=== PATIENT | female | born 1970 | race Caucasian/White ===

== ENCOUNTER 2018-05-17 15:55 | Emergency (ER) | payer OTHER, SELFPAY ==
[2018-05-17 16:07] VITALS: BP 136/86; PULSE 92; RESP 20; TEMP 36.7; O2SAT 100; BMI 20.1
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
[2018-05-17] MEDS: ALBUTEROL 2.5 MG/3 ML NEB (ADULT) INH (17:06)
[2018-05-17 17:07] VITALS: PULSE 84; RESP 18; O2SAT 99
[2018-05-17 17:18] LABS: Add Manual Diff / Slide Review NO; Basophils Percent Auto 0.2 % (0-2); Hematocrit 39.1 % (36-46); Hemoglobin 13.3 g/dL (12.0-16.0); Lymphocytes Percent Auto 9.5 % (25-40); Mean Corpuscular HGB Conc 33.9 % (30-36); Mean Corpuscular Hemoglobin 29.7 PG (26-34); Mean Corpuscular Volume 87.7 fL (80-100); Monocytes Percent Auto 3.9 % (3-14); Neutrophils Absolute Auto 8400 /uL (3000-5900); Neutrophils Percent Auto 86.4 % (50-75); Platelet Count 349 X10^3/uL (150-400); Red Blood Cell Count 4.46 X10^6/uL (4.0-5.2); Red Cell Distribution Width 13.6 % (11.6-14.8); White Blood Cell Count 9.8 X10^3/uL (4.5-11.0)
[2018-05-17 17:28] LABS: Alanine Aminotransferase 27 IU/L (9-52); Albumin 4.7 g/dL (3.5-5.0); Albumin Globulin Ratio 1.5 (1.0-2.8); Alkaline Phosphatase 49 U/L (38-126); Aspartate Aminotransferase 24 IU/L (14-36); BUN Creatinine Ratio 15.7 (6-22); Bilirubin Total 0.3 mg/dL (0.2-1.3); Blood Urea Nitrogen 11 mg/dL (7-17); Calcium 9.7 mg/dL (8.4-10.2); Carbon Dioxide 28 mmol/L (22-32); Chloride 100 mmol/L (98-107); Estimated Glomerular Filt Rate > 60.0 mL/min (>60); Globulin 3.2 g/dL (1.7-4.1); Glucose 108 mg/dL (70-100); HEMOLYSIS < 15 (0-50); Potassium 3.8 mmol/L (3.4-5.1); Sodium 142 mmol/L (137-145); Total Protein 7.9 g/dL (6.3-8.2)
[2018-05-17 17:36] LABS: B Type Natriuretic Peptide < 29.6 (<100)
--- NOTE | 2018-05-17 17:58 | DI.CT.S_ITS ---
PROCEDURE: CT CHEST WO CON INDICATIONS: dyspnea, h/o interstitial disease TECHNIQUE: Noncontrast 5 mm thick sections acquired from the pulmonary apices to the posterior costophrenic angles. 7 mm thick coronal and sagittal MIP reformats were then acquired. For radiation dose reduction, the following was used: automated exposure control, adjustment of mA and/or kV according to patient size. COMPARISON: [facility], , CHEST 2 VIEW, 06/04/2017, 15:29. [facility], , XR CHEST 2V, 05/17/2018, 16:26. FINDINGS: Image quality: Excellent. Lungs and pleura: There is a 2 mm nodule in the superior segment of the left lower lobe (series 4 image 32). No acute air space opacities. No pleural effusions or pneumothorax. Central and peripheral airways are patent and normal in caliber. Mediastinum: Heart size is normal. No pericardial effusion. No mediastinal adenopathy by size criteria. Thoracic aorta and central pulmonary arteries are normal in size. Esophagus is normal in caliber. No hiatal hernia. Bones and chest wall: Multiple surgical clips in the left breast. No suspicious bony lesions. No vertebral body compression fractures. No axillary or supraclavicular adenopathy by size criteria. Thyroid gland is normal. Abdomen: Visualized upper abdominal solid organs and bowel loops appear normal in the absence of contrast. IMPRESSION: 1. No acute cardiopulmonary disease. 2. A 2 mm nodule in the superior segment left lower lobe, most likely a small granuloma. 3. Surgical clips in the left breast. Fleischner Society criteria for SOLID lung nodule followup. Nodule size (mm)Low-risk patientHigh-risk patient?4No follow-up neededFollow-up at 12 mo; if no change, no further follow-up>[id number] CT at 12 mo; if no change, no further follow-up needed.Initial follow-up CT at 6-12 mo, then 18-24 mo if no change. >6-8Initial follow-up CT at 6-12 mo, then 18-24 mo if no change. Initial follow-up CT at 3-6 mo, then 9-12 mo and 24 mo if no change. >8Follow-up CT at 3, 9, 24 mo. Or PET and/or biopsy.Same as for low-risk pts. Dictated by: Jennifer Eli M.D. on 05/17/2018 at 18:42 Approved by: Jennifer Eli M.D. on 05/17/2018 at 18:49
[2018-05-17 18:00] VITALS: BP 116/71; PULSE 101; RESP 15; O2SAT 96
[2018-05-17] MEDS: methylPREDNISolone 125 MG/2 ML VIAL IV (18:16)
[2018-05-17 20:10] VITALS: BP 127/74; PULSE 101; RESP 15; O2SAT 98
== END 2018-05-17 20:40 | disposition home or self-care (01) ==
PROVIDERS: Emergency Provider Internal Medicine; Family Provider Internal Medicine; PCP Internal Medicine
DX: J84.9 Interstitial pulmonary disease, unspecified (principal); R09.89 Other specified symptoms and signs involving the circulatory and respiratory systems
CPT/HCPCS: 36415; 71046; 71250; 80053; 83880; 85025; 94640; 96374; 99282; 99284; J2930; J7613

== ENCOUNTER 2018-06-13 08:55 | Emergency (ER) | payer OTHER, MEDICAID, SELFPAY ==
[2018-06-13] VITALS (13 sets, daily range): BP systolic 104–127; BP diastolic 67–89; PULSE 95–112; RESP 15–26; TEMP 37; O2SAT 98–100
[2018-06-13] MEDS: ALBUTEROL/IPRATROPIUM 3 ML AMPUL INH (09:19)
--- NOTE | 2018-06-13 09:23 | ED_ITS ---
HPI - SOB/Dyspnea General Chief Complaint: Shortness of Breath/Dyspnea Stated Complaint: SOB Time Seen by Provider: 06/13/18 08:59 Source: patient and EMS Mode of arrival: EMS Limitations: no limitations History of Present Illness This is a 47-year-old female who comes to the emergency department with complaint of shortness of breath. Patient states that she she has these episodes intermittently. She states she has a history of interstitial lung disease as well as thoracic syringomyelia. Patient states this morning she started feeling short of breath. She was having issues yesterday as well. She tried an albuterol inhaler without any improvement. She states she has responded to steroids in the past. She states she was here for similar symptoms at early May. Patient states her physician has also told her she may be having muscle spasms that sometimes cause her issues. Patient states that she has not had any fevers, no cold cough or congestion or upper respiratory congestion. She denies any chest pain or pressure but feels tight. Patient denies any nausea, no vomiting no new GI or urinary symptoms. She states she takes medication such as laxative Um as well as using enemas to help with bowel movements. She states she is able to urinate on her own. No new weakness or numbness. She does see a neurologist every 12 weeks. Related Data Home Medications Medication Instructions Recorded Confirmed TIZANIDINE HCL (ZANAFLEX) 8 mg PO BID #0 02/01/11 clonazepam 2 mg PO BID #0 02/01/11 tramadol 50 mg PO PRN #0 02/01/11 lamotrigine [Lamictal] 200 mg PO BID #0 10/01/16 prednisone 5 mg PO PRN PRN #0 10/01/16 onabotulinumtoxinA [Botox] 325 #0 06/04/17 Previous Rx's Medication Instructions Recorded sulfamethoxazole-trimethoprim 1 tab PO BID #14 tab 06/04/17 azithromycin [Zithromax] 250 mg OR QDAY #6 tab 09/09/17 albuterol sulfate 2 puff INHALATION Q4-6H PRN #6.7 05/17/18 gram methylprednisolone [Medrol] 36 mg PO DAILY #90 tab 05/17/18 methylprednisolone [Medrol] 36 mg PO DAILY 3 Days tab 06/13/18 Allergies Allergy/AdvReac Type Severity Reaction Status Date / Time epinephrine Allergy Intermediate Verified 06/13/18 09:17 cephalexin [From KEFLEX] Allergy Unknown Verified 05/17/18 16:07 Review of Systems Review of Systems All systems reviewed & are unremarkable except as noted in HPI and below Constitutional Denies chills, Denies fever(s) and Reports headache(s) ENT Ears, Nose, Mouth, and Throat: Reports headache(s) Cardiovascular Denies chest pain, Denies syncope, Denies palpitations and Reports dyspnea Respiratory Denies chest congestion, Denies cough, Denies hemoptysis, Denies excessive phlegm production, Reports dyspnea, Denies stridor and Reports wheezing Gastrointestinal Gastrointestinal: Denies abdominal pain, Denies change in bowel habits, Reports constipation, Denies diarrhea, Denies nausea and Denies vomiting Genitourinary Denies hematuria, Denies flank pain, Denies urinary incontinence and Denies urinary urgency Integumentary/Breasts Denies rash Neurologic Denies syncope and Reports headache(s) Endocrine Denies palpitations Allergic/Immunologic Reports wheezing PFSH Medical History Autonomic dysfunction (Chronic) Hx of spinal cord injury (Chronic) Interstitial lung disease (Chronic) Nondiabetic gastroparesis (Chronic) Recurrent syncope (Chronic) Surgical History Status post cholecystectomy (Resolved) Social History Smoking Status: Never smoker Exam Narrative Exam Narrative: GEN: well nourished, well appearing female, alert and oriented x 3, patient appears to be in moderate distress. HEENT: Atraumatic, pupils are equal round reactive to light, extraocular movements are intact, nares are clear, TMs are clear with no fluid, there is no conjunctival pallor. Throat is clear without any exudates, erythema, tonsillar enlargement or uvular deviation, no stridor, no hoarseness. HEART: Regular rate and rhythm without murmur, clicks, rubs. LUNGS:Lungs clear to auscultation, no wheezes, rales, crackles, chest moves symmetrically. No tachypnea. Patient has some upper respiratory end expiratory wheeze. Not appreciated on lung exam. patient is able to speak in full sentences. ABD:bowel sounds normal, soft, non-tender, no guarding, rebound, rigidity, no masses noted, no hepatosplenomegaly MSCL: Non-tender, no muscle atrophy, muscles strength 5/5 upper and lower extremities, full range of motion, normal gait NEURO:CN 2-12 intact, sensation normal Initial Vital Signs Initial Vital Signs: Vital Signs Temperature 98.6 F 06/13/18 09:10 Pulse Rate 99 H 06/13/18 09:10 Respiratory Rate 26 H 06/13/18 09:10 Blood Pressure 119/72 06/13/18 09:10 Pulse Oximetry 100 06/13/18 09:10 Course Orders Ordered: ED Orders 06/13/18 09:21 Consult to Respiratory Therapy Evaluate & Treat EKG-12 Lead Stat 06/13/18 09:22 XR chest 1V Stat 06/13/18 09:50 B Type Natriuretic Peptide Stat Basic Metabolic Panel Stat Complete Blood Count AUTO DIFF Stat D Dimer Stat Magnesium Stat Troponin & CK Cardiac Panel Stat 06/13/18 12:48 CT angio chest PE protocol Stat Discontinued Medications Albuterol (Ventolin) 2.5 mg INH NOW PRN PRN Reason: Shortness Of Breath Last Admin: 06/13/18 12:37 Dose: 2.5 mg Albuterol/Ipratropium (Duoneb) 3 ml INH NOW ONE Stop: 06/13/18 09:19 Last Admin: 06/13/18 09:19 Dose: 3 ml Clonazepam (Klonopin) 1 mg PO NOW ONE Stop: 06/13/18 09:24 Last Admin: 06/13/18 09:51 Dose: 1 mg Clonazepam (Klonopin) 1 mg PO NOW ONE Stop: 06/13/18 11:14 Last Admin: 06/13/18 11:23 Dose: 1 mg Sodium Chloride (Normal Saline 0.9%) 1,000 mls @ 1,000 mls/hr IV BOLUS ONE Stop: 06/13/18 10:20 Last Infusion: 06/13/18 11:18 Dose: 0 mls/hr Admin: 06/13/18 09:51 Dose: 1,000 mls/hr Ibuprofen (Advil) 400 mg PO NOW ONE Stop: 06/13/18 09:56 Last Admin: 06/13/18 09:57 Dose: 400 mg Methylprednisolone (Solu-Medrol 125 Mg Vial) 125 mg IV NOW ONE Stop: 06/13/18 09:22 Last Admin: 06/13/18 09:58 Dose: 125 mg Vital Signs - 8 hr 06/13/18 09:57 06/13/18 10:30 06/13/18 11:28 Pulse Rate 103 H 105 H 102 H Respiratory Rate 17 15 17 Blood Pressure Blood Pressure [Left Arm] 104/67 110/69 Pulse Oximetry 98 100 06/13/18 12:00 06/13/18 12:17 06/13/18 12:37 Pulse Rate 108 H 95 H 102 H Respiratory Rate 22 18 19 Blood Pressure 110/69 Blood Pressure [Left Arm] 122/88 Pulse Oximetry 100 99 99 06/13/18 13:00 06/13/18 14:00 06/13/18 15:40 Pulse Rate 112 H 111 H 96 H Respiratory Rate 17 16 17 Blood Pressure Blood Pressure [Left Arm] 127/81 118/79 116/89 Pulse Oximetry 100 100 100 06/13/18 16:30 06/13/18 17:17 Pulse Rate 95 H 95 H Respiratory Rate 16 17 Blood Pressure Blood Pressure [Left Arm] 126/87 Pulse Oximetry 100 100 MDM - SOB/Dyspnea Lab Data Attestation: I reviewed the patient's lab results. Result diagrams: 06/13/18 09:50 06/13/18 09:50 Lab Results 06/13/18 06/13/18 06/13/18 Range/Units 09:50 09:50 09:50 WBC 5.0 (4.5-11.0) X10^3/uL RBC 4.55 (4.0-5.2) X10^6/uL Hgb 13.3 (12.0-16.0) g/dL Hct 40.5 (36-46) % MCV 88.9 (80-100) fL MCH 29.2 (26-34) PG MCHC 32.9 (30-36) % RDW 13.5 (11.6-14.8) % Plt Count 249 (150-400) X10^3/uL Neut % (Auto) 80.7 H (50-75) % Lymph % (Auto) 15.1 L (25-40) % [place] % (Auto) 3.2 (3-14) % Eos % (Auto) 0.4 L (2-4) % Baso % (Auto) 0.6 (0-2) % Neut # (Auto) 4000 (0079-2287) /uL D-Dimer 321 H (<230) ng/mL Sodium 140 (137-145) mmol/L Potassium 3.8 (3.4-5.1) mmol/L Chloride 105 (98-107) mmol/L Carbon Dioxide 25 (22-32) mmol/L BUN 5 L (7-17) mg/dL Creatinine 0.70 (0.52-1.04) mg/dL Estimated GFR > 60.0 (>60) mL/min BUN/Creatinine Ratio 7.1 (6-22) Glucose 139 H (70-100) mg/dL Calcium 9.4 (8.4-10.2) mg/dL Magnesium 2.2 (1.6-2.3) mg/dL Total Creatine Kinase 56 (30-135) U/L CK-MB (CK-2) TNP CK-MB (CK-2) Rel Index TNP Troponin I < 0.012 (0.01-0.034) ng/mL B-Natriuretic Peptide < 100 (<100) Point of Care Testing Test Results Negative Urine Dip Bedside Urine Glucose Negative Bedside Urine Bilirubin - Negative Bedside Urine Ketone - Negative Urine Specific [place] 1.010 Bedside Urine Occult Blood + Bedside Urine pH 7.5 Bedside Urine Protein - Negative Bedside Urine Urobilinogen - Negative Bedside Urine Nitrite - Negative Bedside Urine Leukocytes - Negative Esterase Imaging Data Chest x-ray: Radiologist's impression: [address] [address] XRay Report Signed Patient: Cheyanne Ruiz MR#: [id number] : 1970 Acct:[id number] Age/Sex: 47 / F Date of Service: 06/13/18 Loc: ED Accession Number: [id number] Procedure: XR chest 1V Ordering Provider: Dianelys Beach D.O. PROCEDURE: XR CHEST 1V INDICATIONS: shortness of breath TECHNIQUE: One view of the chest was acquired. COMPARISON: [facility], , XR CHEST 2V, 05/17/2018, 16:26. FINDINGS: Surgical changes and devices: Surgical clips projecting in the left chest wall Lungs and pleura: No pleural effusions or pneumothorax. Lungs are clear. Mediastinum: Mediastinal contours appear normal. Heart size is normal. Bones and chest wall: No suspicious bony lesions. Overlying soft tissues appear unremarkable. IMPRESSION: No acute disease. Dictated by: Lucas Hardin M.D. on 06/13/2018 at 10:06 Approved by: Lucas Hardin M.D. on 06/13/2018 at 10:07 CT scan - chest: Radiologist's impression: [address] [address] [address] Scan Report Signed Patient: Cheyanne Ruiz MR#: [id number] : 1970 Acct:[id number] Age/Sex: 47 / F Date of Service: 06/13/18 Loc: ED Accession Number: [id number] Procedure: CT angio chest PE protocol Ordering Provider: Dianelys Beach D.O. PROCEDURE: CT ANGIO CHEST PE PROTOCOL INDICATIONS: sob, improved, then worsened TECHNIQUE: After the administration of intravenous contrast, 2 mm thick sections acquired from the pulmonary apices to the posterior costophrenic angles. 3-dimensional maximum intensity projection (MIP) coronal and sagittal reformats were then acquired through the thorax. For radiation dose reduction, the following was used: automated exposure control, adjustment of mA and/or kV according to patient size. COMPARISON: None. FINDINGS: Image quality: Excellent. Pulmonary arteries: Pulmonary arteries are normal in size, and demonstrate no intraluminal filling defects to suggest central pulmonary embolism. Lungs and pleura: Lungs are clear, there is minimal bilateral dependent atelectasis. No pleural effusions or pneumothorax. Central and peripheral airways are patent. Mediastinum: Heart size is normal, without pericardial effusion. No mediastinal or hilar adenopathy. Thoracic aorta is normal in caliber and enhancement. Esophagus is normal in caliber, without hiatal hernia. Bones and chest wall: Fluid attenuation 3 and 4 cm lesion seen in the left breast, which could be cysts although recommend mammographic and ultrasound correlation. No suspicious bony lesions. Ribs and thoracic spine appear intact throughout. Thyroid gland negative. No axillary or supraclavicular adenopathy. Abdomen: Right upper quadrant surgical clips. IMPRESSION: No evidence of pulmonary embolism. No acute consolidation. Dictated by: Lucas Hardin M.D. on 06/13/2018 at 14:26 Approved by: Lucas Hardin M.D. on 06/13/2018 at 14:34 ECG Data Attestation: I personally reviewed and interpreted this ECG as follows: Interpretation: Sinus tachycardia with ventricular rate of 114, P are interval of 168, QRS of 98 and QTC of 387. Nonspecific changes. Q-wave in 1 aVL. V5 and V6. No ST elevation appreciated. Patient also has Q-waves in 2,3 and AVF. MDM Narrative Medical decision making narrative: Patient is not wheezy but was given a neb to see if this improves her symptoms. Patient is slightly tachycardic but noted hypoxia. Patient was placed on CO2 monitor and capnography she shows she has a normal range. Patient feels a little bit better after Solu-Medrol. She is also having somewhat of a migraine, she normally takes Klonopin so is given here in the emergency department as well as ibuprofen. Patient is ambulating without issue. Patient started to leave the department, who went around the roundabout here in the ER and then return immediately with shortness of breath. Patient CO2 monitor is the same. She is not have any wheezing. She is not having any change in her oxygenation. She was tachycardic initially so discussed and will do a PE study. This was negative. Patient has not had any further symptoms but is quite anxious to return home. We did discuss she was on methylprednisolone 36 mg and then tapered down slowly by her primary care physician. She has follow-up in the short term. I discussed that we will restart her on this as she is still on methylprednisolone but a low dose. She is under the care of a neurologist as well. We did discuss that she my be having laryngospasm based on her description on events. Given referral to ENT and discussed posibility of scope and botox if found to have spasm. Patient asked if she could keep her IV in place because she felt that she might return to the ER and I made it clear that that was in not a possibility and was inappropriate. On repeated evaluations patient has had normal vital signs except for occasional tachycardia. She has improved while here. She has had no tachypnea, no hypo oxygenation, her CO2 monitor was on almost the entire time she was in the emergency department and has not had any elevation or decreased and has been the same even when she returned immediately after going about 2 blocks and coming back to the emergency department. Discharge Plan Departure Patient Disposition: Home Clinical Impression: Dyspnea, Migraine Discharge Date/Time: 06/13/18 17:20 Interventions: ED Discharge Assessment Last Done: 06/13/18 17:17 Instructions: DI for Shortness of Breath Activity Restrictions/Additional Instructions: Follow-up with your physician in the next 2-3 days for recheck. Call for an appointment tomorrow morning. Continue home medications as prescribed. Start increased dose of prednisolone and follow up with primary care for tapering dose. Return to the ER for worsening symptoms, fevers greater than 100.4, difficulty breathing, chest pain, persistent vomiting or other new or concerning symptoms. Prescriptions: New methylprednisolone [Medrol] 4 mg tablet 36 mg PO DAILY 3 Days RF: 0 No Action TIZANIDINE HCL (ZANAFLEX) 8 mg PO BID Qty: 0 RF: 0 tramadol 50 MG tablet 50 mg PO PRN Qty: 0 RF: 0 clonazepam 2 MG tablet 2 mg PO BID Qty: 0 RF: 0 lamotrigine [Lamictal] 200 MG tablet 200 mg PO BID Qty: 0 RF: 0 prednisone 5 MG tablet 5 mg PO PRN PRNQty: 0 RF: 0 onabotulinumtoxinA [Botox] 200 UNIT recon soln 325 Qty: 0 RF: 0 sulfamethoxazole-trimethoprim 800 MG/160 MG tablet 1 tab PO BID Qty: 14 RF: 0 azithromycin [Zithromax] 250 MG tablet 250 mg OR QDAY Qty: 6 RF: 0 methylprednisolone [Medrol] 4 mg tablet 36 mg PO DAILY Qty: 90 RF: 0 albuterol sulfate 90 mcg/actuation HFA aerosol inhaler 2 puff INHALATION Q4-6H PRN (Reason: tight chest) Qty: 6.7 RF: 0 Referrals: Moody Hsu MD [Physician] - Billy Trivedi [Primary Care Provider] -
[2018-06-13] MEDS: SODIUM CHLORIDE 0.9% 1,000 ML 1000 ML IV (09:51)
[2018-06-13] MEDS: clonazePAM 0.5 MG TABLET 1 MG PO ×2 (09:51→11:23)
[2018-06-13 09:57] LABS: Add Manual Diff / Slide Review NO; Basophils Percent Auto 0.6 % (0-2); Eosinophils Percent Auto 0.4 % (2-4); Hematocrit 40.5 % (36-46); Hemoglobin 13.3 g/dL (12.0-16.0); Lymphocytes Percent Auto 15.1 % (25-40); Mean Corpuscular HGB Conc 32.9 % (30-36); Mean Corpuscular Hemoglobin 29.2 PG (26-34); Mean Corpuscular Volume 88.9 fL (80-100); Monocytes Percent Auto 3.2 % (3-14); Neutrophils Absolute Auto 4000 /uL (1500-7000); Neutrophils Percent Auto 80.7 % (50-75); Platelet Count 249 X10^3/uL (150-400); Red Blood Cell Count 4.55 X10^6/uL (4.0-5.2); Red Cell Distribution Width 13.5 % (11.6-14.8)
[2018-06-13] MEDS: IBUPROFEN 400 MG TABLET PO (09:57)
[2018-06-13] MEDS: methylPREDNISolone 125 MG/2 ML VIAL IV (09:58)
[2018-06-13 10:04] LABS: BUN Creatinine Ratio 7.1 (6-22); Blood Urea Nitrogen 5 mg/dL (7-17); Calcium 9.4 mg/dL (8.4-10.2); Carbon Dioxide 25 mmol/L (22-32); Chloride 105 mmol/L (98-107); Creatine Kinase 56 U/L (30-135); D Dimer 321 ng/mL (<230); Estimated Glomerular Filt Rate > 60.0 mL/min (>60); Glucose 139 mg/dL (70-100); HEMOLYSIS < 15 (0-50); Magnesium 2.2 mg/dL (1.6-2.3); Potassium 3.8 mmol/L (3.4-5.1); Sodium 140 mmol/L (137-145)
[2018-06-13 10:17] LABS: B Type Natriuretic Peptide < 100 (<100); Troponin I < 0.012 ng/mL (0.01-0.034)
--- NOTE | 2018-06-13 11:15 | PC.NURSE ---
Patient requests another 1mg klonopin because 2mg is her normal dose. I informed Mank DO. Patient reports pain is slightly relieved however not entirely.
--- NOTE | 2018-06-13 12:29 | PC.NURSE ---
Patient back in room, states I didn't get very far. Short of breath with upper airway stridorous sounds. She denies any exertion or anything that could have brought it on. States it is random and happens 2-3x in a day when it happens.
[2018-06-13] MEDS: ALBUTEROL 2.5 MG/3 ML NEB (ADULT) INH (12:37)
--- NOTE | 2018-06-13 12:48 | DI.CT.S_ITS ---
PROCEDURE: CT ANGIO CHEST PE PROTOCOL INDICATIONS: sob, improved, then worsened TECHNIQUE: After the administration of intravenous contrast, 2 mm thick sections acquired from the pulmonary apices to the posterior costophrenic angles. 3-dimensional maximum intensity projection (MIP) coronal and sagittal reformats were then acquired through the thorax. For radiation dose reduction, the following was used: automated exposure control, adjustment of mA and/or kV according to patient size. COMPARISON: None. FINDINGS: Image quality: Excellent. Pulmonary arteries: Pulmonary arteries are normal in size, and demonstrate no intraluminal filling defects to suggest central pulmonary embolism. Lungs and pleura: Lungs are clear, there is minimal bilateral dependent atelectasis. No pleural effusions or pneumothorax. Central and peripheral airways are patent. Mediastinum: Heart size is normal, without pericardial effusion. No mediastinal or hilar adenopathy. Thoracic aorta is normal in caliber and enhancement. Esophagus is normal in caliber, without hiatal hernia. Bones and chest wall: Fluid attenuation 3 and 4 cm lesion seen in the left breast, which could be cysts although recommend mammographic and ultrasound correlation. No suspicious bony lesions. Ribs and thoracic spine appear intact throughout. Thyroid gland negative. No axillary or supraclavicular adenopathy. Abdomen: Right upper quadrant surgical clips. IMPRESSION: No evidence of pulmonary embolism. No acute consolidation. Dictated by: Lucas Hardin M.D. on 06/13/2018 at 14:26 Approved by: Lucas Hardin M.D. on 06/13/2018 at 14:34
--- NOTE | 2018-06-13 13:39 | PC.NURSE ---
Brought patient some coffee
== END 2018-06-13 17:20 | disposition home or self-care (01) ==
PROVIDERS: Emergency Provider Emergency Medicine; Family Provider Internal Medicine; PCP Internal Medicine
DX: R06.00 Dyspnea, unspecified (principal); G43.909 Migraine, unspecified, not intractable, without status migrainosus
CPT/HCPCS: 36415; 71045; 71275; 80048; 81003; 81025; 82550; 83735; 83880; 84484; 85025; 85379; 93005; 94150; 94640; 94770; 96361; 96374; 99285; J2930; J7613; Q9967

== ENCOUNTER → 2019-02-15 16:31 | Outpatient (CLI) | payer OTHER, MEDICAID, SELFPAY ==
[2019-02-15 18:07] LABS: Add Manual Diff / Slide Review NO; Basophils Absolute Auto 0 /uL (0-100); Basophils Percent Auto 0.7 % (0-2); Eosinophils Absolute Auto 100 /uL (0-450); Eosinophils Percent Auto 1.4 % (2-4); Hematocrit 39.4 % (36-46); Hemoglobin 12.9 g/dL (12.0-16.0); Lymphocytes Absolute Auto 2400 /uL (1100-4500); Lymphocytes Percent Auto 38.6 % (25-40); Mean Corpuscular HGB Conc 32.8 % (30-36); Mean Corpuscular Hemoglobin 28.6 PG (26-34); Mean Corpuscular Volume 87.3 fL (80-100); Monocytes Absolute Auto 500 /uL (0-900); Monocytes Percent Auto 7.9 % (3-14); Neutrophils Absolute Auto 3200 /uL (1500-7000); Neutrophils Percent Auto 51.4 % (50-75); Platelet Count 324 X10^3/uL (150-400); Red Blood Cell Count 4.51 X10^6/uL (4.0-5.2); Red Cell Distribution Width 13.4 % (11.6-14.8); White Blood Cell Count 6.2 X10^3/uL (4.5-11.0)
[2019-02-15 18:36] LABS: Alanine Aminotransferase 8 IU/L (9-52); Albumin 4.5 g/dL (3.5-5.0); Albumin Globulin Ratio 1.4 (1.0-2.8); Alkaline Phosphatase 42 U/L (38-126); Aspartate Aminotransferase 24 IU/L (14-36); BUN Creatinine Ratio 18.3 (6-22); Bilirubin Total 0.6 mg/dL (0.2-1.3); Blood Urea Nitrogen 11 mg/dL (7-17); Calcium 9.3 mg/dL (8.4-10.2); Carbon Dioxide 28 mmol/L (22-32); Chloride 98 mmol/L (98-107); Cholesterol 234 mg/dL (140-199); Estimated Glomerular Filt Rate > 60.0 mL/min (>60); Globulin 3.2 g/dL (1.7-4.1); Glucose 84 mg/dL (70-100); HDL Cholesterol 85 mg/dL (40-60); HEMOLYSIS < 15 (0-50); LDL Cholesterol Calculated 139 mg/dL (<100); Potassium 3.5 mmol/L (3.4-5.1); Sodium 136 mmol/L (137-145); Total Protein 7.7 g/dL (6.3-8.2); Triglycerides 52 mg/dL (35-150)
[2019-02-15 18:40] LABS: HEMOLYSIS < 15 (0-50); Iron 66 ug/dL (37-170)
[2019-02-15 18:53] LABS: Percent Iron Saturation 17 % (15-50); Total Iron Binding Capacity 399 ug/dL (265-497); Transferrin 341 mg/dL (206-381)
[2019-02-15 19:11] LABS: Ferritin 10.7 ng/mL (6.27-137)
== END ==
PROVIDERS: PCP Internal Medicine; Visit Provider Internal Medicine
DX: E61.1 Iron deficiency (principal); Z79.899 Other long term (current) drug therapy; E78.2 Mixed hyperlipidemia
CPT/HCPCS: 36415; 80053; 80061; 82728; 83540; 83550; 85025

== ENCOUNTER → 2019-08-29 12:09 | Outpatient (ROUT) | payer OTHER, MEDICAID, SELFPAY ==
[2019-09-07 13:08] LABS: COVID19 Sendout Not Detected (Not Detected)
== END ==
PROVIDERS: PCP Internal Medicine; Visit Provider Internal Medicine
DX: R05 Cough (principal)
CPT/HCPCS: 87635